=== PATIENT | female | born 1955 | race Asian ===

== ENCOUNTER 2019-12-10 08:23 | Day surgery (SDC) | payer OTHER ==
[2019-12-09 12:14] VITALS: BMI 33.6
[2019-12-10] MEDS ORDERED: SODIUM CHLORIDE 0.9% P/F 10 ML VIAL IJ ONE (09:25)
[2019-12-10] MEDS ORDERED: DEXAMETHASONE SOD PHOSPHATE 4 MG/1 ML VIAL ONE (09:25)
[2019-12-10] MEDS ORDERED: KETOROLAC TROMETHAMINE 30 MG/1 ML VIAL ONE (09:25)
[2019-12-10] MEDS ORDERED: ceFAZolin SODIUM 1 GM VIAL ONE (09:25)
[2019-12-10] MEDS ORDERED: PROPOFOL 20 ML ONE ×2 (09:26)
[2019-12-10] MEDS ORDERED: MIDAZOLAM HCL 2 MG/2 ML SINGLE DOSE VIAL ONE (09:26)
[2019-12-10] MEDS ORDERED: EPHEDRINE SULFATE/0.9% NACL/PF 50 MG/10 ML SYRINGE NR ONE (09:30)
[2019-12-10] MEDS ORDERED: SUCCINYLCHOLINE CHLORIDE 200 MG/10 ML SYRINGE ONE (09:30)
[2019-12-10] MEDS ORDERED: oxyCODONE HCL 5 MG TABLET PO PRN ×2 (09:33)
[2019-12-10] MEDS ORDERED: ONDANSETRON 4 MG/2 ML VIAL IVPUSH PRN (09:33)
[2019-12-10] MEDS ORDERED: ACETAMINOPHEN 1000 MG/100 ML VIAL (NON FORMULARY) IVPB ONE (09:38)
--- NOTE | 2019-12-10 09:38 | HP ---
History & Physical Update - History History: No Change - Physical Physical: No Change - Assessment Assessment: No Change - Plan Plan: No Change (12/09/2019)
[2019-12-10] MEDS ORDERED: DEXTROSE 5%-0.45% SALINE 1,000 ML IV SCH (09:45)
[2019-12-10] MEDS ORDERED: IBUPROFEN 800 MG/8 ML IJ IVPB SCH (09:45)
[2019-12-10] MEDS ORDERED: LACTATED RINGERS SOLUTION 1,000 ML IV SCH (09:45)
[2019-12-10] MEDS ORDERED: ceFAZolin 2 GRAM PREMIX BAG IVPB ONE (09:58)
[2019-12-10] MEDS ORDERED: ACETAMINOPHEN INJECTION 100 ML IVPB ONE (11:12)
[2019-12-10 13:53] VITALS: TEMP 98.2
[2019-12-10 14:44] VITALS: BP 132/64; PULSE 85
--- NOTE | 2019-12-10 23:53 | OP ---
DATE OF OPERATION: 12/10/2019 PREOPERATIVE DIAGNOSIS: Stress urinary incontinence, hypermobile urethra. POSTOPERATIVE DIAGNOSIS: Stress urinary incontinence, hypermobile urethra. PROCEDURE: Urethral sling placement and cystoscopy. SURGEON: Abdi Chamberlain MD. ANESTHESIA: General anesthesia. ESTIMATED BLOOD LOSS: 50 mL. DRAINS: None. FINDINGS: Hypermobile urethra. PREOPERATIVE INDICATION: The patient is a 64-year-old female with multiple vaginal births. She has severe stress urinary incontinence with coughing. She has copious amounts of urine that come out. The bladder has only mild grade 1 cystocele. Urodynamics was done to confirm the findings. She comes to the OR today for suburethral sling placement. DESCRIPTION OF PROCEDURE: The patient was brought to the OR, placed on the table in the supine position. Given general anesthesia and IV antibiotics and placed in the modified lithotomy position. The groin was prepped and draped sterilely. Timeout was performed. A Leonardo catheter was placed. The mid portion of the urethra was marked with a marking pen. Pitressin was injected underneath the vaginal mucosa at this point, and incision was made in the midline over the mid portion of the urethra. The vaginal mucosa was sharply dissected off the periurethral tissues in a lateral fashion using Metzenbaum scissors. Leonardo was emptied to suction. An Altis mini sling was placed. One trocar placed on the right side under fingertip control through the vaginal incision towards the obturator canal at the level of the clitoris. This anchored well. The left side was then done similarly. Cystoscopy was performed which revealed no evidence of any bladder perforation. Both UOs were seen with clear efflux. No tumors os tones were seen. Leonardo catheter was placed. The sling was tightened, so it sat flat on the urethra without tension. The tightening suture was removed. The incision was then closed with 2-0 Vicryl suture in running fashion. Good hemostasis was observed. Leonardo catheter was removed. The patient was woken up. ABDI CHAMBERLAIN M.D. [id number]
== END 2019-12-10 14:40 | disposition home or self-care (01) ==
LOC: JASU-SURG 08:23
PROVIDERS: ATTEND Urology
PROC: 0TSD0ZZ Reposition Urethra, Open Approach (ICD-10-PCS; principal; 2019-12-10 10:00)
DX: N39.3 Stress incontinence (female) (male) (principal); N36.41 Hypermobility of urethra
CPT/HCPCS: 57288; C1771; 82962; 94760; J0131

== ENCOUNTER 2024-09-21 22:59 | Inpatient (IN) | payer BC, OTHER ==
[2024-09-21 23:07] VITALS: BMI 32.2
[2024-09-21] MEDS ORDERED: ACETAMINOPHEN INJECTION 100 ML ONE (23:58)
[2024-09-22] MEDS: ACETAMINOPHEN 1000 MG/100 ML BAG IVPB ONE (01:34)
[2024-09-22 01:42] LABS: BASO % 0.3 % (0-2.0); HEMATOCRIT 36.8 % (32.4-45.2); HEMOGLOBIN 11.5 GM/dL (10.7-15.3); LYMPH % 8.8 % (8-40); MCH 22.4 pg (25.7-33.7); MCHC 31.2 g/dl (32.0-36.0); MEAN PLT VOLUME 8.2 fl (7.5-11.1); MONO % 5.4 % (3.8-10.2); NEUT % 85.5 % (42.8-82.8); PLATELET COUNT 160 10^3/uL (134-434); RBC 5.12 M/mm3 (3.60-5.2); RDW 13.7 % (11.6-15.6); WHITE BLOOD COUNT 12.5 K/mm3 (4.0-10.0)
[2024-09-22 01:59] LABS: POTASSIUM 4.2 mmol/L (3.5-5.1)
[2024-09-22 02:01] LABS: CALCIUM 9.4 mg/dL (8.5-10.1)
[2024-09-22 02:02] LABS: ALBUMIN 3.8 g/dl (3.4-5.0)
[2024-09-22 02:05] LABS: CREATININE 0.8 mg/dL (0.55-1.3)
[2024-09-22 02:07] LABS: BILIRUBIN,TOTAL 0.8 mg/dL (0.2-1); TOT PROT 7.2 g/dl (6.4-8.2)
[2024-09-22] MEDS: SODIUM CHLORIDE 0.9% 500 ML INFUS.BAG IV ONE (03:20)
[2024-09-22 03:27] LABS: EPI CELLS 6 /uL (0-25.1); HYALINE CASTS 1 /uL (0-3.1); PH,URINE 5.5 (5.0-8.0); URINE APPEARANCE CLEAR; URINE BACTERIA 9 /uL (0-1359); URINE BILIRUBIN NEGATIVE (NEGATIVE); URINE COLOR YELLOW; URINE GLUCOSE (UA) NEGATIVE (NEGATIVE); URINE KETONE NEGATIVE (NEGATIVE); URINE LEUK ESTERASE NEGATIVE (NEGATIVE); URINE NITRITE NEGATIVE (NEGATIVE); URINE PROTEIN 1+ (NEGATIVE); URINE RBC 6 /uL (0-23.9); URINE UROBILINOGEN 0.2 mg/dL (0.2-1.0); URINE WBC 10 /uL (0-25.8)
[2024-09-22] MEDS ORDERED: VANCOMYCIN/WATER 1250 MG 1,250 MG/250 ML BAG IVPB ONE (03:49)
[2024-09-22] MEDS ORDERED: AMPICILLIN SODIUM 2 GM VIAL ONE ×2 (03:49→09:11)
[2024-09-22] MEDS ORDERED: CEFTRIAXONE 2 GM-D5W BAG 2 GM/50 ML BAG IVPB ONE (03:49)
[2024-09-22] MEDS: CEFTRIAXONE 2,000 MG in DEXTROSE 5%-WATER - 50 ML IVPB ONE (03:59)
[2024-09-22] MEDS: AMPICILLIN - 2 GM in SODIUM CHLORIDE 100 ML IVPB ONE (04:07)
[2024-09-22] MEDS: VANCOMYCIN/WATER 1250 MG 1,250 MG/250 ML BAG IVPB ONE (04:50)
[2024-09-22] MEDS ORDERED: DEXAMETHASONE SOD PHOSPHATE 10 MG/1 ML VIAL ONE (04:51)
[2024-09-22] MEDS: DEXAMETHASONE SOD PHOSPHATE 10 MG/1 ML VIAL IVPUSH ONE (04:53)
[2024-09-22] MEDS ORDERED: ONDANSETRON 4 MG/2 ML VIAL IVPUSH PRN (05:15)
[2024-09-22] MEDS: DEXTROSE 5% IVPB ONE (05:54)
[2024-09-22] MEDS: ACYCLOVIR IVPB ONE (05:54)
[2024-09-22] MEDS: WATER IVPB ONE (05:54)
[2024-09-22] MEDS ORDERED: ACETAMINOPHEN INJECTION 100 ML ONE (05:55)
[2024-09-22] MEDS: SODIUM CHLORIDE 1,000 ML IV SCH (05:59)
[2024-09-22] MEDS: ACETAMINOPHEN 1000 MG/100 ML BAG IVPB PRN ×2 (05:59→18:39)
[2024-09-22 06:23] LABS: LACTIC ACID 2.2 mmol/L (0.4-2.0)
[2024-09-22] MEDS: ACYCLOVIR INJECTION 800 MG in DEXTROSE 5%-WATER - 100 ML IVPB ONE ×2 (06:31→07:54)
[2024-09-22 07:41] LABS: HEMATOCRIT 35.5 % (32.4-45.2); HEMOGLOBIN 11.5 GM/dL (10.7-15.3); MCHC 32.3 g/dl (32.0-36.0); MEAN PLT VOLUME 8.6 fl (7.5-11.1); PLATELET COUNT 144 10^3/uL (134-434); RBC 4.99 M/mm3 (3.60-5.2); RDW 13.9 % (11.6-15.6); WHITE BLOOD COUNT 10.7 K/mm3 (4.0-10.0)
[2024-09-22] MEDS: INSULIN ASPART SLIDING SCALE (NOVOLOG) 1 VIAL SQ SCH (07:48)
[2024-09-22] MEDS ORDERED: INSULIN ASPART SLIDING SCALE (NOVOLOG) 1 VIAL SQ ONE (07:48)
[2024-09-22 08:12] LABS: ALBUMIN 3.4 g/dl (3.4-5.0); BILIRUBIN,TOTAL 0.6 mg/dL (0.2-1); BLOOD UREA NITROGEN 7.2 mg/dL (7-18); CALCIUM 8.9 mg/dL (8.5-10.1); CREATININE 0.7 mg/dL (0.55-1.3); MAGNESIUM 1.7 mg/dL (1.8-2.4); PHOSPHOROUS 3.1 mg/dL (2.5-4.9); POTASSIUM 3.8 mmol/L (3.5-5.1); TOT PROT 6.8 g/dl (6.4-8.2)
[2024-09-22 08:23] LABS: LACTIC ACID 2.2 mmol/L (0.4-2.0)
[2024-09-22 09:17] LABS: ANISOCYTOSIS 2+; MACROCYTOSIS 0; OVALOCYTE 1+
[2024-09-22] MEDS: AMPICILLIN - 2 GM in SODIUM CHLORIDE 100 ML IVPB SCH (09:22)
[2024-09-22] MEDS: DEXAMETHASONE SOD PHOSPHATE 10 MG/1 ML VIAL IVPUSH SCH (12:16)
[2024-09-22] MEDS: LISINOPRIL 5 MG TABLET PO SCH (12:16)
[2024-09-22 12:47] LABS: HIV INTERPRETATION NEGATIVE (NEGATIVE)
[2024-09-22] MEDS: CEFTRIAXONE 2 GM-D5W BAG 2 GM/50 ML BAG IVPB SCH (14:26)
[2024-09-22] MEDS ORDERED: VANCOMYCIN/WATER 1250 MG 1,250 MG/250 ML BAG IVPB SCH ×2 (15:30→16:00)
[2024-09-22] MEDS ORDERED: CEFTRIAXONE 2 GM-D5W BAG 2 GM/50 ML BAG IVPB SCH (16:00)
[2024-09-22 17:48] LABS: HEMATOCRIT 35.1 % (32.4-45.2); HEMOGLOBIN 11.2 GM/dL (10.7-15.3); MCH 22.5 pg (25.7-33.7); MCHC 31.8 g/dl (32.0-36.0); MEAN CELL VOLUME 70.8 fl (80-96); MEAN PLT VOLUME 8.3 fl (7.5-11.1); PLATELET COUNT 151 10^3/uL (134-434); RBC 4.96 M/mm3 (3.60-5.2); RDW 13.9 % (11.6-15.6); WHITE BLOOD COUNT 11.7 K/mm3 (4.0-10.0)
[2024-09-22] MEDS ORDERED: ACYCLOVIR INJECTION 800 MG in DEXTROSE 5%-WATER - 100 ML IVPB SCH (18:00)
[2024-09-22 18:26] LABS: LACTIC ACID 2.2 mmol/L (0.4-2.0)
[2024-09-22 20:02] LABS: LACTIC ACID 2.9 mmol/L (0.4-2.0)
[2024-09-23 08:36] LABS: BASO % 0.2 % (0-2.0); EOS % 0.2 % (0-4.5); HEMATOCRIT 33.1 % (32.4-45.2); LYMPH % 6.3 % (8-40); MCH 22.1 pg (25.7-33.7); MCHC 30.3 g/dl (32.0-36.0); MEAN CELL VOLUME 72.9 fl (80-96); MONO % 3.4 % (3.8-10.2); NEUT % 89.9 % (42.8-82.8); PLATELET COUNT 149 10^3/uL (134-434); RBC 4.54 M/mm3 (3.60-5.2); RDW 14.1 % (11.6-15.6); WHITE BLOOD COUNT 16.4 K/mm3 (4.0-10.0)
[2024-09-23 08:47] LABS: POTASSIUM 3.6 mmol/L (3.5-5.1)
[2024-09-23 08:51] LABS: BLOOD UREA NITROGEN 17.2 mg/dL (7-18); CALCIUM 9.2 mg/dL (8.5-10.1)
[2024-09-23 08:54] LABS: CREATININE 0.8 mg/dL (0.55-1.3)
[2024-09-23 08:56] LABS: BILIRUBIN,TOTAL 0.4 mg/dL (0.2-1); TOT PROT 6.4 g/dl (6.4-8.2)
[2024-09-23 09:00] LABS: LACTIC ACID 2.4 mmol/L (0.4-2.0)
[2024-09-23 14:52] LABS: LACTIC ACID 3.1 mmol/L (0.4-2.0)
[2024-09-23] MEDS: LIDOCAINE 4% PATCH TP SCH (15:22)
[2024-09-23] MEDS: SODIUM CHLORIDE 1,000 ML IV SCH (16:13)
[2024-09-23] MEDS: POLYETHYLENE GLYCOL (HEALTHYLAX) 3350 17 GM PACKET PO SCH (16:50)
[2024-09-23 17:57] LABS: LACTIC ACID 2.6 mmol/L (0.4-2.0)
[2024-09-23] MEDS: LIDOCAINE PATCH REMOVAL MC SCH (22:16)
[2024-09-23] MEDS: INSULIN (LEVEMIR) 100 UNITS/ML UNITS SQ SCH (22:19)
[2024-09-24] MEDS: LOSARTAN POTASSIUM 25 MG TABLET PO ONE (00:52)
[2024-09-24] MEDS: NIFEdipine E.R. 30 MG TABLET PO ONE (02:56)
[2024-09-24] MEDS: NAPROXEN 500 MG TABLET PO ONE (03:18)
[2024-09-24 08:50] LABS: HEMATOCRIT 31.8 % (32.4-45.2); MCH 22.5 pg (25.7-33.7); MCHC 31.5 g/dl (32.0-36.0); MEAN CELL VOLUME 71.5 fl (80-96); MEAN PLT VOLUME 8.8 fl (7.5-11.1); PLATELET COUNT 144 10^3/uL (134-434); RBC 4.44 M/mm3 (3.60-5.2); RDW 14.3 % (11.6-15.6); WHITE BLOOD COUNT 13.7 K/mm3 (4.0-10.0)
[2024-09-24 09:05] LABS: POTASSIUM 3.7 mmol/L (3.5-5.1)
[2024-09-24 09:08] LABS: CALCIUM 9.1 mg/dL (8.5-10.1)
[2024-09-24 09:12] LABS: CREATININE 0.5 mg/dL (0.55-1.3)
[2024-09-24 09:13] LABS: BILIRUBIN,TOTAL 0.5 mg/dL (0.2-1); TOT PROT 6.1 g/dl (6.4-8.2)
[2024-09-24] MEDS: LISINOPRIL 10 MG TABLET PO SCH (10:52)
[2024-09-24 12:13] LABS: ANISOCYTOSIS 1+; MACROCYTOSIS 0
[2024-09-24 15:20] VITALS: RESP 20
[2024-09-24] MEDS: SIMETHICONE 80 MG TAB.CHEW (FP) PO ONE (19:25)
[2024-09-24] MEDS: MELATONIN 5 MG TABLETS PO SCH (21:10)
[2024-09-25] MEDS: amLODIPine BESYLATE 5 MG TABLET (FP) PO ONE (02:05)
[2024-09-25] MEDS: CEFUROXIME AXETIL 500 MG TABLET PO SCH (10:16)
[2024-09-25] MEDS ORDERED: amLODIPine BESYLATE 10 MG TABLET (FP) PO ONE (19:50)
[2024-09-25] MEDS: SIMETHICONE 80 MG TAB.CHEW (FP) PO PRN (20:30)
[2024-09-25] MEDS: SENNOSIDES 8.8 MG/5 ML SYRUP PO SCH (21:13)
[2024-09-25 21:59] LABS: POTASSIUM 3.9 mmol/L (3.5-5.1)
[2024-09-25 22:01] LABS: CALCIUM 9.4 mg/dL (8.5-10.1)
[2024-09-25 22:02] LABS: BLOOD UREA NITROGEN 6.7 mg/dL (7-18)
[2024-09-25 22:05] LABS: CREATININE 0.5 mg/dL (0.55-1.3)
[2024-09-25 22:06] LABS: BILIRUBIN,TOTAL 1.4 mg/dL (0.2-1); TOT PROT 6.7 g/dl (6.4-8.2)
[2024-09-26 08:57] VITALS: BP 149/82; PULSE 83; TEMP 98.1
[2024-09-26 09:27] LABS: HEMATOCRIT 33.8 % (32.4-45.2); HEMOGLOBIN 10.9 GM/dL (10.7-15.3); MCH 22.9 pg (25.7-33.7); MCHC 32.3 g/dl (32.0-36.0); MEAN CELL VOLUME 70.9 fl (80-96); MEAN PLT VOLUME 8.2 fl (7.5-11.1); PLATELET COUNT 151 10^3/uL (134-434); RBC 4.76 M/mm3 (3.60-5.2); RDW 13.9 % (11.6-15.6); WHITE BLOOD COUNT 8.5 K/mm3 (4.0-10.0)
[2024-09-26 09:53] LABS: POTASSIUM 3.9 mmol/L (3.5-5.1)
[2024-09-26 09:55] LABS: CALCIUM 9.3 mg/dL (8.5-10.1)
[2024-09-26 09:56] LABS: ALBUMIN 2.7 g/dl (3.4-5.0); BLOOD UREA NITROGEN 11.6 mg/dL (7-18)
[2024-09-26 09:59] LABS: CREATININE 0.5 mg/dL (0.55-1.3)
[2024-09-26 10:00] LABS: BILIRUBIN,TOTAL 1.2 mg/dL (0.2-1); TOT PROT 6.4 g/dl (6.4-8.2)
[2024-09-26 10:18] LABS: ANISOCYTOSIS 2+; MACROCYTOSIS 0
[2024-09-26] MEDS: oxyCODONE HCL 5 MG TABLET PO SCH (12:23)
[2024-09-26] MEDS: ACETAMINOPHEN 325 MG TABLET (FP) PO SCH (12:24)
[2024-09-26] MEDS: POLYETHYLENE GLYCOL (HEALTHYLAX) 3350 17 GM PACKET PO SCH (14:48)
== END 2024-09-26 18:00 | disposition home or self-care (01) | DRG 92 ==
LOC: JER 22:59 → JERBED 09-22 04:51 → J6S 09-22 09:28
PROVIDERS: ADMIT Internal Medicine; ATTEND Student in an Organized Health Care Education/Training Program
DX: G92.8 Other toxic encephalopathy (principal); E87.20 Acidosis, unspecified; R65.10 Systemic inflammatory response syndrome (SIRS) of non-infectious origin without acute organ dysfunction; S32.028A Other fracture of second lumbar vertebra, initial encounter for closed fracture; I16.0 Hypertensive urgency; E78.5 Hyperlipidemia, unspecified; I10 Essential (primary) hypertension; R78.89 Finding of other specified substances, not normally found in blood; T38.3X5A Adverse effect of insulin and oral hypoglycemic [antidiabetic] drugs, initial encounter; Y92.89 Other specified places as the place of occurrence of the external cause; E66.9 Obesity, unspecified; Z68.32 Body mass index [BMI] 32.0-32.9, adult; E11.65 Type 2 diabetes mellitus with hyperglycemia; W19.XXXA Unspecified fall, initial encounter; Y93.9 Activity, unspecified; Y99.9 Unspecified external cause status; K59.00 Constipation, unspecified
CPT/HCPCS: 0241U-QW; 36415; 70450-TC; 70553-TC; 71250-TC; 72125-TC; 72128-TC; 72131-TC; 74018-TC-FY; 74176-TC; 80053; 81003; 82962; 83036; 83605; 83735; 84100; 84484; 85025; 85027; 86618; 86803; 87040; 87086; 87389; 93005; 93010; 97116-GP; 97162-GP; 99285-25; G0480; J0131; J1100